=== PATIENT | male | born 1985 | race African-American/Black ===

== ENCOUNTER 2024-10-01 11:29 | Emergency (ER) | payer MEDICAID, OTHER ==
[~2024-10-01] VITALS: Ht 180.3 cm; Wt 91.0 kg
[~2024-10-01 11:29] MED LIST: ALBU6.7H15 INH
[2024-10-01 11:31] VITALS: BP 125/58; PULSE 72; RESP 18; TEMP 36.9; O2SAT 97
[2024-10-01] MEDS ORDERED: CLOT15CR5 TP (11:52)
[2024-10-01 12:36] LABS: CLARITY URINE CLEAR (CLEAR); COLOR URINE YELLOW (YELLOW); GLUCOSE URINE 3+ (NEGATIVE); KETONES URINE TRACE (NEGATIVE); LEUKOCYTE ESTERASE URINE NEGATIVE (NEGATIVE); NITRITE URINE NEGATIVE (NEGATIVE); OCCULT BLOOD URINE NEGATIVE (NEGATIVE); PH URINE 5.5 (4.5-8.0); PROTEIN URINE TRACE (NEGATIVE); SPECIFIC GRAVITY URINE 1.036 (1.005-1.030)
[2024-10-01 14:12] LABS: RBC URINE 0-2 /hpf (0-2); SQUAMOUS EPITHELIAL CELL URINE 1+ /lpf (RARE/1+); WBC URINE 0-2 /hpf (0-2)
[2024-10-01 14:13] LABS: BACTERIA URINE NONE SEEN; MUCUS URINE TRACE /lpf (NONE/TRACE)
== END 2024-10-01 12:44 | disposition home or self-care (01) ==
LOC: ER 11:46
DX: N48.1 Balanitis (principal); E11.9 Type 2 diabetes mellitus without complications; J45.909 Unspecified asthma, uncomplicated
CPT/HCPCS: 81003; 99283